=== PATIENT | male | born 1960 | race Caucasian/White ===

== ENCOUNTER 2022-11-04 06:50 | Emergency (ER) | payer OTHER ==
[~2022-11-04] VITALS: Ht 188 cm; Wt 86.2 kg
[2022-11-04] MEDS ORDERED: Percocet 5-3251 EACH PO (09:24)
== END 2022-11-04 09:39 | disposition home or self-care (01) ==
LOC: ER 06:50
DX: B34.9 Viral infection, unspecified (principal); M25.559 Pain in unspecified hip; G89.29 Other chronic pain
CPT/HCPCS: 99282

== ENCOUNTER 2022-12-31 00:26 | Emergency (ER) | payer OTHER ==
[~2022-12-31] VITALS: Ht 188 cm; Wt 90.7 kg
[~2022-12-31 00:26] MED LIST: Percocet 5-3251 EACH PO
[2022-12-31] MEDS ORDERED: CHLO25 PO (01:45)
== END 2022-12-31 02:01 | disposition home or self-care (01) ==
LOC: ER 00:26
DX: F41.9 Anxiety disorder, unspecified (principal); F10.139 Alcohol abuse with withdrawal, unspecified
CPT/HCPCS: 99282; A9270